=== PATIENT | female | born 1965 | race Caucasian/White ===

== ENCOUNTER 2018-11-07 10:25 | Day surgery (SDC) | payer OTHER ==
[2018-11-07] MEDS ORDERED: PROPOFOL 100 ML (15:24)
[2018-11-07] MEDS ORDERED: FENTAnyl 50 MCG/ML VIAL ×2 (15:24→16:11)
[2018-11-07] MEDS ORDERED: MIDAZOLAM 1 MG/ML 2 ML INJ (15:33)
[2018-11-07] MEDS ORDERED: BUPIVACAINE 0.25% (MPF) 30 ML INJ (15:48)
[2018-11-07] MEDS ORDERED: LIDOCAINE 1% (MPF) 30 ML INJ (15:48)
[2018-11-07] MEDS ORDERED: ONDANSETRON 4 MG INJ (16:07)
[2018-11-07] MEDS ORDERED: DEXAMETHASONE 4 MG/ML 5 ML INJ (16:07)
[2018-11-07] MEDS: TRIAMCINOLONE ACET 40 MG/ML INJ (16:12)
[2018-11-07] MEDS ORDERED: METOCLOPRAMIDE 10 MG INJ IV (16:30)
[2018-11-07] MEDS ORDERED: HYDROmorphONE 1 MG/5 ML IV SYRINGE IV ×2 (16:30)
[2018-11-07] MEDS ORDERED: FENTAnyl 50 MCG/ML VIAL IV ×2 (16:30)
[2018-11-07] MEDS ORDERED: MEPERIDINE 25 MG INJ IV (16:30)
[2018-11-07] MEDS ORDERED: ONDANSETRON 4 MG INJ IV (16:30)
[2018-11-07] MEDS ORDERED: LABETALOL HCL 20MG INJ IV (16:30)
[2018-11-07] MEDS ORDERED: hydrALAzine 20 MG INJ IV (16:30)
[2018-11-07] MEDS ORDERED: HYDROCODONE/APAP (5/325) TAB PO (17:00)
[2018-11-07] MEDS ORDERED: TRIAMCINOLONE ACET 40 MG/ML INJ IM (17:30)
== END 2018-11-07 18:11 | disposition home or self-care (01) ==
LOC: SDS 10:25
DX: L91.0 Hypertrophic scar (principal); L90.5 Scar conditions and fibrosis of skin
CPT/HCPCS: 11443; 88304; 93005